=== PATIENT | female | born 1975 | race American Indian/Alaskan Native ===

== ENCOUNTER 2016-10-06 11:00 | Outpatient (CLI) | payer OTHER | END 2016-10-06 11:01 | disposition home or self-care (01) | LOC: SLR 11:00 | PROVIDERS: ATTEND Specialist | DX: G47.33 Obstructive sleep apnea (adult) (pediatric) (principal); E66.9 Obesity, unspecified; I10 Essential (primary) hypertension | CPT/HCPCS: 95810 ==

== ENCOUNTER 2016-11-24 11:00 | Outpatient (CLI) | payer OTHER | END 2016-11-24 11:01 | disposition home or self-care (01) | LOC: SLR 11:00 | PROVIDERS: ATTEND Specialist | DX: G47.33 Obstructive sleep apnea (adult) (pediatric) (principal) | CPT/HCPCS: 95811 ==

== ENCOUNTER 2017-08-16 07:47 | Day surgery (SDC) | payer OTHER ==
[~2017-08-16 07:47] MED LIST: NACL 0.9% 1000 ML 1,000 ML IV SCH
[2017-08-16] MEDS ORDERED: DIPRIVAN 10 MG/ML IV ONE (10:01)
--- NOTE | 2017-08-16 10:22 | Anesthesia Consultation ---
Anesthesia Consult and Med Hx Date of service: 08/16/17 - Airway Anesthetic Teeth Evaluation: Dentures (implanted) ROM Head & Neck: Adequate Mental/Hyoid Distance: Adequate Mallampati Class: Class I Intubation Access Assessment: Good - Pulmonary Exam CTA: Yes - Cardiac Exam Cardiac Exam: RRR - Pre-Operative Health Status ASA Pre-Surgery Classification: ASA3 Proposed Anesthetic Plan: MAC - Pulmonary Hx Asthma: Yes - Cardiovascular System Hx Hypertension: Yes - Gastrointestinal Hx Gastroesophageal Reflux Disease: Yes - Endocrine Hx Non-Insulin Dependent Diabetes: Yes - Other Systems Hx Obesity: Yes
--- NOTE | 2017-08-16 10:22 | Anesthesia Day of Surgery ---
Anesthesia Day of Surgery - Day of Surgery Patient Examined: Yes Patient H&P Reviewed: Yes Patient is NPO: Yes
[2017-08-16] MEDS ORDERED: HURRICAINE ONE 20% TOPICAL SPRAY MM ×2 (11:38→11:40)
[2017-08-16] MEDS ORDERED: WATER FOR IRRIG STERILE IR ONE (11:40)
--- NOTE | 2017-08-16 11:56 | Discharge Summary ---
Providers - Providers Attending physician: FOUZIA ELIAS Primary care physician: [employer] Hospitalization Condition: Good Hospital course: Pt presented to endoscopy for EGD. She tolerated the procedure well .She was discharged the same day. Disposition: - TO HOME OR SELFCARE Core Measure Documentation - Palliative Care Palliative Care/ Comfort Measures: Not Applicable - Core Measures Any of the following diagnoses?: none Exam - Physical Exam Narrative exam: no changes from prior - Constitutional Vitals: Temp Pulse Resp BP Pulse Ox 98.1 F 68 16 140/80 100 08/16/17 09:27 08/16/17 09:27 08/16/17 09:27 08/16/17 09:27 08/16/17 09:27 Plan Follow up with: HAI IRENE MD [Primary Care Provider] - 7 Days
--- NOTE | 2017-08-16 12:00 | Operative Report ---
Operative Report Operative Report: OPERATIVE REPORT - EGD DATE 08/16/17 SURGERY: Upper endoscopy. SURGEON: Dr. Marroquin OB/GYN PHYSICIAN: Sarah Xie D.O. PRE OP DX: dyspepsia, morbid obesity POST OP DX: small hiatal hernia, gastritis, bile reflux TYPE OF ANESTHESIA: MAC. ESTIMATED BLOOD LOSS: None. COMPLICATIONS: None. SPECIMENS REMOVED: None. FINDINGS: 1. Small hiatal hernia. 2. Gastritis 3. Bile reflux. Otherwise, normal esophagus, and first portion of duodenum. INDICATIONS:INDICATION FOR PROCEDURE: Patient is a 42-year-old female with a long history of morbid obesity. She is planned to have a weight loss procedure and is here for preoperative planning EGD. PROCEDURE DETAILS: After consent was reviewed, patient was taken back to the operating room where patient was placed in the left lateral decubitus position and a bite block was placed in the mouth. After a time-out was called, MAC anesthesia was initiated. I then passed the endoscope into her oropharynx, into her esophagus, visualized the entire esophagus, which was all within normal limits. I then visualized the stomach and the first portion of the duodenum. The antrum of the stomach showed gastritis. Bile was also noted in the stomach. The first portion of the duodenum showed no abnormalities I could clearly visualize. I then retroflexed the scope in the stomach and visualized the hiatus and I could see a small hiatal hernia. I then desufflated the stomach and removed the endoscope. Patient tolerated procedure well and was transferred to recovery room in good and stable condition.
[2017-08-16 12:21] VITALS: BP 139/69
[2017-08-16] MEDS ORDERED: HURRICAINE ONE 20% TOPICAL SPRAY MM NR (14:30)
== END 2017-08-16 07:48 | disposition home or self-care (01) ==
LOC: GIO 07:47
PROVIDERS: ATTEND Specialist
DX: K21.9 Gastro-esophageal reflux disease without esophagitis (principal); K44.9 Diaphragmatic hernia without obstruction or gangrene; K29.70 Gastritis, unspecified, without bleeding; E11.9 Type 2 diabetes mellitus without complications; J45.998 Other asthma; E66.01 Morbid (severe) obesity due to excess calories; Z68.42 Body mass index [BMI] 45.0-49.9, adult; Z82.49 Family history of ischemic heart disease and other diseases of the circulatory system; Z80.8 Family history of malignant neoplasm of other organs or systems; Z83.3 Family history of diabetes mellitus; Z98.890 Other specified postprocedural states; Z79.899 Other long term (current) drug therapy; Z79.84 Long term (current) use of oral hypoglycemic drugs
CPT/HCPCS: J2704; J7030